=== PATIENT | male | born 1950 | race Two or more races ===

== ENCOUNTER 2025-05-30 12:09 | Inpatient (IN) | payer OTHER, MEDICAID ==
[~2025-05-30] VITALS: Ht 165.1 cm; Wt 72.8 kg
[2025-05-30 01:00] VITALS: BP 152/77; PULSE 70; RESP 18; TEMP 98.2; O2SAT 95
[2025-05-30 05:00] VITALS: BP 122/63; PULSE 65; RESP 18; TEMP 98.6; O2SAT 93
[2025-05-30] MEDS: ACETAMINOPHEN 325 MG TAB PO ONE (13:15)
--- NOTE | 2025-05-30 13:31 | ED.PDOC ---
HPI (NEURO) HPI Comments This is a 75 year old male presenting to the ED with chief complaint of headache. Patient reports that he has been experiencing a right sided headache with associated radiation to the right eye and right side of his face for the past 3 days. Patient denies any numbness, weakness, tingling, dizziness, SOB, or chest pain. Chief Complaint: Headache Time Seen by MD: 13:28 Reviewed Notes: Nurses Notes, Medications, Allergies Information Source: Patient Mode of Arrival: Ambulatory Severity: Moderate Headache Severity: Moderate Timing: Days Duration: Since onset Prehospital treatment: None Headache Quality: Aching Headache Location: Generalized Onset: At rest Circumstances: Spontaneous History of: None Modifying factors: Nothing Associated Signs and Symptoms: Headache Past Medical History PAST MEDICAL HISTORY: Cancer, DM, High Lipids, HTN Past Medical History (Other): Cardiomegaly Surgical History: Denies all surgeries Family History Family History: Reviewed,noncontributory to illness Social History Smoker: Non-Smoker Alcohol: Denies ETOH Use Drugs: Denies Drug Use Lives In: Home Constitutional: denies: chills, diaphoresis, fatigue, fever, malaise, sweats, weakness, others EENTM: reports: eye pain; denies: blurred vision, double vision, ear bleeding, ear discharge, ear drainage, ear pain, ear ringing, eye redness, hearing loss, mouth pain, mouth swelling, nasal discharge, nose bleeding, nose congestion, nose pain, photophobia, tearing, throat pain, throat swelling, voice changes, others Respiratory: denies: cough, hemoptysis, orthopnea, SOB at rest, shortness of breath, SOB with excertion, stridor, wheezing, others Cardiovascular: denies: chest pain, dizzy spells, diaphoresis, Dyspnea on exertion, edema, irregular heart beat, left arm pain, lightheadedness, palpitations, PND, syncope, others Gastrointestinal: denies: abdomen distended, abdominal pain, blood streaked bowels, constipated, diarrhea, dysphagia, difficulty swallowing, hematemesis, melena, nausea, poor appetite, poor fluid intake, rectal bleeding, rectal pain, vomiting, others Genitourinary: denies: burning, dysuria, flank pain, frequency, hematuria, incontinence, penile discharge, penile sore, pain, testicle pain, testicle swelling, urgency, others Neurological: reports: headache; denies: dizziness, fainting, left sided numbness, left sided weakness, numbness, paresthesia, pre-existing deficit, right sided numbness, right sided weakness, seizure, speech problems, tingling, tremors, weakness, others Musculoskeletal: denies: back pain, gout, joint pain, joint swelling, muscle pain, muscle stiffness, neck pain, others Integumetry: denies: bruises, change in color, change in hair/nails, dryness, laceration, lesions, lumps, rash, wounds, others Allergic/Immunocompromised: denies: Difficulty Healing, Frequent Infections, Hi ves, Itching, others Hematologic/Lymphatic: denies: anemia, blood clots, easy bleeding, easy bruising, swollen glands, others Endocrine: denies: excessive hunger, excessive sweating, excessive thirst, excessive urination, flushing, intolerance to cold, intolerance to heat, unexplained weight gain, unexplained weight loss, others Psychiatric: denies: anxiety, bipolar disorder, depression, hopeless, panic disorder, schizophrenia, sleepless, suicidal, others All Other Systems: Reviewed and Negative Physical Exam General Appearance: No Apparent Distress, Normal HEENT: Normal ENT Inspection, Pharynx Normal, TMs Normal Neck: Full Range of Motion, Non-Tender, Normal, Normal Inspection Respiratory: Chest Non-Tender, Lungs Clear, No Accessory Muscle Use, No Respiratory Distress, Normal Breath Sounds Cardiovascular: No Edema, No JVD, No Murmur, No Gallop, Normal Peripheral Pulses, Regular Rate/Rhythm Breast Exam: Deferred Gastrointestinal: No Organomegaly, Non Tender, No Pulsatile Mass, Normal Bowel Sounds, Soft Genitalia: Deferred Pelvic: Deferred Rectal: Deferred Extremities: No calf tenderness, Normal capillary refill, Normal inspection, Normal range of motion, Non-tender, No pedal edema Musculoskeletal : Apperance: Normal Neurologic: Alert, dairy technician II-XII nml as Tested, No Motor Deficits, Normal Affect, Normal Mood, No Sensory Deficits Cerebellar Function: Normal Reflexes: Normal Skin: Dry, Normal Color, Warm Lymphatic: No Adenopathy Was a procedure done? Was a procedure done?: No Differential Diagnosis (SZ) Seizure: N/A X-Ray, Labs, Meds, VS Vital Signs Date Time Temp Pulse Resp B/P (MAP) Pulse Ox O2 Delivery O2 Flow Rate FiO2 05/30/25 14:01 76 93 Room Air 05/30/25 14:01 98.7 76 20 155/71 (99) 93 98.7 05/30/25 13:15 98.4 05/30/25 12:10 98.4 73 18 165/71 97 98.4 Lab Test 05/30/25 14:15 05/30/25 13:41 05/30/25 13:22 Range/Units Troponin I High Sensitivity 8 7 </=54 ng/L Urine Color Yellow Yellow Urine Clarity Clear Clear Urine pH 5.5 5.0-9.0 Urine Specific [place] 1.029 1.001-1.035 Urine Protein 1+ H Negative Urine Ketones Trace Negative Urine Blood Negative Negative /uL Urine Nitrite Negative Negative Urine Bilirubin Negative Negative Urine Urobilinogen Normal Negative mg/dL Urine Leukocyte Esterase Negative Negative /uL Urine RBC 1 0 - 3 /hpf Urine Microscopic WBC 1 0-3 /HPF Urine Squamous Epithelial Cells None seen <5 /hpf Urine Bacteria None seen None Seen /hpf Urine Mucus Few None Seen Urine Glucose Normal Normal mg/dL White Blood Count 10.7 4.4-10.8 10^3/uL Red Blood Count 5.19 4.5-5.90 10^6/uL Hemoglobin 15.2 13.5-17.5 g/dL Hematocrit 44.0 41.0-53.0 % Mean Corpuscular Volume 84.7 80.0-100.0 fL Mean Corpuscular Hemoglobin 29.3 28.0-32.0 pg Mean Corpuscular Hemoglobin Concent 34.6 32.0-36.0 g/dL Red Cell Distribution Width 14.2 11.8-14.3 % Platelet Count 189 140-450 10^3/uL Mean Platelet Volume 8.7 6.9-10.8 fL Neutrophils (%) (Auto) 74.7 37.0-80.0 % Lymphocytes (%) (Auto) 14.5 10.0-50.0 % Monocytes (%) (Auto) 9.5 0.0-12.0 % Eosinophils (%) (Auto) 0.6 0.0-7.0 % Basophils (%) (Auto) 0.7 0.0-2.0 % Neutrophils # (Auto) 8.0 1.6-8.6 10 ^3/uL Lymphocytes # (Auto) 1.5 0.4-5.4 10 ^3/uL Monocytes # (Auto) 1.0 0-1.3 10 ^3/uL Eosinophils # (Auto) 0.1 0-0.8 10 ^3/uL Basophils # (Auto) 0.1 0-0.2 10 ^3/uL Nucleated Red Blood Cells 0.1 % Sodium Level 142 136-145 mmol/L Potassium Level 4.4 3.5-5.1 mmol/L Chloride Level 104 98-107 mmol/L Carbon Dioxide Level 27 20-31 mmol/L Anion Gap 11 5-15 Blood Urea Nitrogen 11 9-23 mg/dL Creatinine 1.20 0.700-1.30 mg/dL Glomerular Filtration Rate Calc 62 >90 mL/min BUN/Creatinine Ratio 9.2 L 10.0-20.0 Serum Glucose 134 H 74-106 mg/dL Calcium Level 10.1 8.7-10.4 mg/dL Current Medications Medications (Trade) Dose Ordered Sig/Libby Route Start Time Stop Time Status Last Admin Sodium Chloride 1,000 ml @ 1,000 mls/hr Q1H ONCE IV 05/30/25 13:15 05/30/25 14:14 DC 05/30/25 14:36 Acetaminophen (Tylenol Tablet) 650 mg ONCE ONCE PO 05/30/25 13:15 05/30/25 13:17 DC 05/30/25 13:15 Metoclopramide HCl (Reglan Injection) 10 mg ONCE ONCE IV 05/30/25 13:15 05/30/25 13:17 DC 05/30/25 14:35 [place] [id number] Ph: [phone] DIAGNOSTIC IMAGING Diagnostic Imaging Report : [id number] Signed PATIENT: JEWELL ORDONEZCCT: [id number] UNIT: [id number] : 1950 LOC: ER ROOM / BED: / AGE / SEX: 75 / M ADM STATUS: REG ER SERVICE 1315 ORDERING PHYSICIAN: BILL CASEY MD PROCEDURE(s): HWOCT - HEAD WITHOUT CONTRAST REASON: dizziness ORDER NUMBER(s): [id number], ACCESSION NUMBER(s): [id number] EXAM: CT HEAD WITHOUT CONTRAST INDICATION: dizziness EXAM DATE: 05/30/2025 01:24 PM COMPARISON: None TECHNIQUE: CT of the head without intravenous contrast. Radiation Dose Information: CTDI volume is 51.67 mGy. Dose-length product is 725.1 mGy*cm FINDINGS: There is no evidence of acute intracranial hemorrhage, extra-axial collection, mass effect, midline shift, herniation or hydrocephalus. The ventricles, sulci and cisterns are age appropriate. The klein-white differentiation is intact. The visualized paranasal sinuses and mastoid air cells are clear. The surrounding soft tissues and osseous structures are unremarkable. IMPRESSION: 1. No evidence of acute intracranial hemorrhage, mass effect or hydrocephalus. END IMPRESSION: ATED BY: RAULITO AVINA MD DICTATED DATE/TIME: 05/30/251345 SIGNED BY: RAULITO AVINA MD SIGNED DATE/TIME: 05/30/251345 CC: [place] [id number] Ph: [phone] DIAGNOSTIC IMAGING Diagnostic Imaging Report : [id number] Signed PATIENT: JEWELL ORDONEZCCT: [id number] UNIT: [id number] : 1950 LOC: ER ROOM / BED: / AGE / SEX: 75 / M ADM STATUS: REG ER SERVICE 14 ORDERING PHYSICIAN: BILL CASEY MD PROCEDURE(s): CXRP - CHEST PORTABLE REASON: headache and dizziness ORDER NUMBER(s): [id number], ACCESSION NUMBER(s): [id number] EXAM: XY CHEST PORTABLE HISTORY: headache and dizziness TECHNIQUE: 1 view of the chest COMPARISON: None FINDINGS/IMPRESSION: LUNGS: Possible infiltrate in the left lung base versus crowding of bronchovascular markings MEDIASTINUM: Unremarkable. BONES: No acute osseous abnormality. OTHER: None. ATED BY: SEAMUS GOMEZ MD DICTATED DATE/TIME: 05/30/251347 SIGNED BY: SEAMUS GOMEZ MD SIGNED DATE/TIME: 05/30/251347 CC: Images Reviewed?: Images reviewed and evaluated by me Time of 1ST Reevaluation: 14:26 Reevaluation 1ST: Unchanged Patient Education/Counseling: Diagnosis, Treatment Family Education/Counseling: Diagnosis, Treatment Departure 1 Departure Time of Disposition: 16:26 (Patient for hands with numbness and tingling in the hands concerning for possible TIA versus complex migraine versus cluster headache. We will admit patient for further workup and expert consultation) Impression: Primary Impression: Suspected transient ischemic attack Additional Impressions: Migraine Left facial numbness Arm numbness Disposition: ADMITTED INPATIENT Admit to: Med Surg Condition: Guarded Critical Care Note Critical Care Time?: No Stability Stability form required: No Heart Score Heart Score: Heart Score Response (Comments) Value History N/A 0 EKG N/A 0 Age N/A 0 Risk Factors N/A 0 Troponin N/A 0 Total 0 I personally scribed for BILL CASEY MD ([email or web address]) on 05/30/25 at 13:31. Electronically submitted by Edu Gonzales ([email or web address]). I personally scribed for BILL CASEY MD ([email or web address]) on 05/30/25 at 14:04. Electronically submitted by Edu Gonzales ([email or web address]). BILL CASEY MD May 30, 2025 13:31
[2025-05-30 13:38] LABS: Hematocrit 44.0 % (41.0-53.0); Hemoglobin 15.2 g/dL (13.5-17.5); Mean Corpuscular Hemoglobin 29.3 pg (28.0-32.0); Mean Corpuscular Volume 84.7 fL (80.0-100.0); Nucleated Red Blood Cells % 0.1 %
[2025-05-30 13:41] LABS: Chloride 104 mmol/L (98-107); Potassium 4.4 mmol/L (3.5-5.1); Sodium 142 mmol/L (136-145)
[2025-05-30 13:42] LABS: Anion Gap 11 (5-15); Carbon Dioxide 27 mmol/L (20-31)
[2025-05-30 13:43] LABS: Calcium 10.1 mg/dL (8.7-10.4)
[2025-05-30 13:48] LABS: BUN/Creatinine Ratio 9.2 (10.0-20.0); Blood Urea Nitrogen 11 mg/dL (9-23)
--- NOTE | 2025-05-30 13:48 | DVH ---
EXAM: CT HEAD WITHOUT CONTRAST INDICATION: dizziness EXAM DATE: 05/30/2025 01:24 PM COMPARISON: None TECHNIQUE: CT of the head without intravenous contrast. Radiation Dose Information: CTDI volume is 51.67 mGy. Dose-length product is 725.1 mGy*cm FINDINGS: There is no evidence of acute intracranial hemorrhage, extra-axial collection, mass effect, midline shift, herniation or hydrocephalus. The ventricles, sulci and cisterns are age appropriate. The klein-white differentiation is intact. The visualized paranasal sinuses and mastoid air cells are clear. The surrounding soft tissues and osseous structures are unremarkable. IMPRESSION: 1. No evidence of acute intracranial hemorrhage, mass effect or hydrocephalus. END IMPRESSION:
--- NOTE | 2025-05-30 13:51 | DVH ---
EXAM: XY CHEST PORTABLE HISTORY: headache and dizziness TECHNIQUE: 1 view of the chest COMPARISON: None FINDINGS/IMPRESSION: LUNGS: Possible infiltrate in the left lung base versus crowding of bronchovascular markings MEDIASTINUM: Unremarkable. BONES: No acute osseous abnormality. OTHER: None.
[2025-05-30 13:55] LABS: Glucose 134 mg/dL (74-106)
[2025-05-30 14:11] LABS: Urine Protein, UAD 1+ (Negative)
[2025-05-30] MEDS: METOCLOPRAMIDE HCL 5MG/ml INJ 2ml VIAL IV ONE (14:35)
[2025-05-30] MEDS: SODIUM CHLORIDE 0.9% 1,000 ML IV ONE (14:36)
[2025-05-30] MEDS ORDERED: DEXTROSE (50%) 50ML SYRG IV PRN (21:45)
[2025-05-30] MEDS ORDERED: ACETAMINOPHEN 325 MG TAB PO PRN (21:45)
[2025-05-30] MEDS: ACCU-CHEK COMFORT CURVE STRIP VI SCH (22:12)
[2025-05-30] MEDS: LOSARTAN POTASSIUM 50 MG TAB PO SCH (22:16)
[2025-05-30] MEDS: InsuLIN REG 1unit/0.01ml Soln (100units/ml) SC SCH (22:17)
[2025-05-30 22:44] VITALS: BP 139/69; PULSE 67; RESP 18; TEMP 97.7; O2SAT 94
[2025-05-31] MEDS ORDERED: ROSU40TA47 PO (00:19)
[2025-05-31] MEDS ORDERED: METF-372 PO (00:19)
[2025-05-31] MEDS ORDERED: GLUC-149 XX (00:19)
[2025-05-31] MEDS ORDERED: [UNRECOGNIZED DRUG - CODE] (00:19)
[2025-05-31] MEDS ORDERED: SITA100T7 PO (00:19)
[2025-05-31] MEDS ORDERED: MELO15TA29 PO (00:19)
[2025-05-31] MEDS ORDERED: LOSA-535 PO (00:19)
[2025-05-31] MEDS ORDERED: AMLO1TAB22 PO (00:19)
[2025-05-31] MEDS: KETOROLAC TROMETH 30 MG/ML 1ML VIAL IV PRN (00:24)
--- NOTE | 2025-05-31 01:52 | DVHHP2 ---
History of Present Illness History of Present Illness 75-year-old male with PMHx of prostate cancer in remission status post surgical resection, type 2 diabetes mellitus, hypertension, and hyperlipidemia, who presented with a 3-day history of right-sided headache. Pain started in the right periorbital region and radiated posteriorly toward the occipital area. Headache partially improved upon arrival to the ED. No prior history of migraine or chronic headache disorders. Blood pressure on presentation was elevated to 165 systolic, later improved. He denies fever, neck stiffness, jaw claudication, scalp tenderness, visual changes, focal weakness, sensory deficits, or speech difficulties. PMHx Prostate cancer in remission status post surgery, type 2 diabetes mellitus, hypertension, hyperlipidemia PSHx Prostate surgery for malignancy Medications Amlodipine, losartan, metformin, sitagliptin (Januvia), rosuvastatin Allergies No known drug allergies reported Social History No tobacco, alcohol, or illicit drug use reported ROS Negative except as per HPI Labs / Imaging CBC within normal limits CMP with mild hyperglycemia Urinalysis unremarkable CT head without contrast: no acute intracranial abnormality, no evidence of hemorrhage or ischemic stroke Review of Systems Allergies: Coded Allergies: NO KNOWN ALLERGIES (Unverified , 05/30/25) Medications Current Medications Medications Dose Ordered Sig/Libby Route Start Time Stop Time Status Last Admin Dose Admin Diagnostic Test (Pha) 1 strip ACHS 05/30/25 22:00 05/30/25 22:12 1 STRIP Insulin Human Regular ACHS SC 05/30/25 22:00 05/30/25 22:17 2 UNITS Dextrose 50 ml UD PRN IV 05/30/25 21:45 Losartan Potassium 100 mg DAILY PO 05/30/25 21:45 05/30/25 22:16 100 MG Amlodipine Besylate 5 mg DAILY PO 05/31/25 10:00 Acetaminophen 650 mg Q4HP PRN PO 05/30/25 21:45 Ketorolac Tromethamine 15 mg Q6HPRN PRN IV 05/30/25 21:45 06/04/25 21:44 05/31/25 00:24 15 MG Exam Vital Signs Vital Signs Date Time Temp Pulse Resp B/P (MAP) Pulse Ox O2 Delivery O2 Flow Rate FiO2 05/30/25 22:46 Room Air* 0 21 05/30/25 22:16 149/72 05/30/25 22:14 97.9 73 20 94 97.9 Exam Vital signs stable after initial hypertension General: No acute distress HEENT: Normocephalic, atraumatic, no scalp tenderness Neuro: Alert and oriented, cranial nerves IIXII intact, normal visual quiñonez by confrontation, full extraocular movements, normal strength and sensation in all extremities, normal coordination and gait Cardiac: Regular rate and rhythm Pulmonary: Clear to auscultation bilaterally Abdomen: Soft, non-tender Extremities: No edema Labs/Xrays Labs Test 05/30/25 22:12 05/30/25 14:15 05/30/25 13:41 05/30/25 13:22 Range/Units POC Glucose 150 H 70-106 mg/dl Troponin I High Sensitivity 8 </=54 ng/L Urine Color Yellow Yellow Urine Clarity Clear Clear Urine pH 5.5 5.0-9.0 Urine Specific [place] 1.029 1.001-1.035 Urine Protein 1+ H Negative Urine Ketones Trace Negative Urine Blood Negative Negative /uL Urine Nitrite Negative Negative Urine Bilirubin Negative Negative Urine Urobilinogen Normal Negative mg/dL Urine Leukocyte Esterase Negative Negative /uL Urine RBC 1 0 - 3 /hpf Urine Microscopic WBC 1 0-3 /HPF Urine Squamous Epithelial Cells None seen <5 /hpf Urine Bacteria None seen None Seen /hpf Urine Mucus Few None Seen Urine Glucose Normal Normal mg/dL White Blood Count 10.7 4.4-10.8 10^3/uL Red Blood Count 5.19 4.5-5.90 10^6/uL Hemoglobin 15.2 13.5-17.5 g/dL Hematocrit 44.0 41.0-53.0 % Mean Corpuscular Volume 84.7 80.0-100.0 fL Mean Corpuscular Hemoglobin 29.3 28.0-32.0 pg Mean Corpuscular Hemoglobin Concent 34.6 32.0-36.0 g/dL Red Cell Distribution Width 14.2 11.8-14.3 % Platelet Count 189 140-450 10^3/uL Mean Platelet Volume 8.7 6.9-10.8 fL Neutrophils (%) (Auto) 74.7 37.0-80.0 % Lymphocytes (%) (Auto) 14.5 10.0-50.0 % Monocytes (%) (Auto) 9.5 0.0-12.0 % Eosinophils (%) (Auto) 0.6 0.0-7.0 % Basophils (%) (Auto) 0.7 0.0-2.0 % Neutrophils # (Auto) 8.0 1.6-8.6 10 ^3/uL Lymphocytes # (Auto) 1.5 0.4-5.4 10 ^3/uL Monocytes # (Auto) 1.0 0-1.3 10 ^3/uL Eosinophils # (Auto) 0.1 0-0.8 10 ^3/uL Basophils # (Auto) 0.1 0-0.2 10 ^3/uL Nucleated Red Blood Cells 0.1 % Sodium Level 142 136-145 mmol/L Potassium Level 4.4 3.5-5.1 mmol/L Chloride Level 104 98-107 mmol/L Carbon Dioxide Level 27 20-31 mmol/L Anion Gap 11 5-15 Blood Urea Nitrogen 11 9-23 mg/dL Creatinine 1.20 0.700-1.30 mg/dL Glomerular Filtration Rate Calc 62 >90 mL/min BUN/Creatinine Ratio 9.2 L 10.0-20.0 Serum Glucose 134 H 74-106 mg/dL Calcium Level 10.1 8.7-10.4 mg/dL SEPSIS Sepsis Screen Date sepsis recognized/suspect: May 30, 2025 Time Sepsis recognized/suspect: 2213 Recent Procedure: No On Antibiotic Therapy: No Respiratory Rate >20: No Heart Rate >90: No Temp<36 C (96.8 F) or >38.3 C: No SBP <90 or MAP <65 mmHG: No New Acute Mental Status Change: No Is the patient on CPAP, BIPAP,: No Physician Orders Admit (05/30/25 21:20) Oxygen By Nasal Cannula (05/30/25 21:20) Stat Ekg For Chest Pain (05/30/25 21:20) Notify Md Of Changes From Base (05/30/25 21:20) Poultry Eviscerator For 24 Hours (05/30/25 21:20) Emergency Dysrhythmia Protocol (05/30/25 21:20) Rhythm Strips Once Every Shift (05/30/25 21:20) Cardiac Diet-2gna,Lofat,Lochol (05/31/25 Breakfast) Glucose Blood (Accu-Chek Comfort Curve T (05/30/25 22:00) Losartan Tablet (Cozaar Tablet) (05/30/25 21:45) Amlodipine Tablet (Norvasc Tablet) (05/31/25 10:00) Acetaminophen Tablet (Tylenol Tablet) (05/30/25 21:45) Ketorolac Injection (Toradol Injection) (05/30/25 21:45) Insulin R (Human) (Insulin R) (05/30/25 22:00) Dextrose 50% Syringe (05/30/25 21:45) Vital Signs Date Time Temp Pulse Resp B/P (MAP) Pulse Ox O2 Delivery O2 Flow Rate FiO2 05/30/25 22:46 Room Air* 0 21 05/30/25 22:16 149/72 05/30/25 22:14 97.9 73 20 149/72 (97) 94 97.9 05/30/25 20:39 97.8 69 18 158/74 (102) 93 97.8 Medications Medications Dose Ordered Sig/Libby Route Start Time Stop Time Status Last Admin Dose Admin Diagnostic Test (Pha) 1 strip ACHS 05/30/25 22:00 05/30/25 22:12 1 STRIP Insulin Human Regular ACHS SC 05/30/25 22:00 05/30/25 22:17 2 UNITS Ketorolac Tromethamine 15 mg Q6HPRN PRN IV 05/30/25 21:45 06/04/25 21:44 05/31/25 00:24 15 MG Losartan Potassium 100 mg DAILY PO 05/30/25 21:45 05/30/25 22:16 100 MG Assessment/Plan Assessment/Plan #Intractable migraine without aura Admitted to medical service for pain control and monitoring. CT head negative, normal neurologic exam, no red flag features to suggest secondary headache. Continue acetaminophen and ketorolac PRN analgesia as needed. Monitor neurologic status. If headache persists, consider migraine-directed therapy escalation. #Hypertension Resume home amlodipine and losartan. Monitor blood pressure during hospitalization. Elevated BP likely reactive to pain. #Type 2 diabetes mellitus Hold oral agents while inpatient. Initiate insulin sliding scale. Monitor glucose levels. #Hyperlipidemia Continue home statin. #History of prostate cancer, status post surgery, in remission Case discussed with Dr Crandall Full code Plan discussed with: Patient, Other (rn) My Orders Orders - ROBERTA PORTILLO RESIDENT Procedure Category Date Status Time Admit ADMIT 05/30/25 Transmitted 21:20 Oxygen By Nasal RT 05/30/25 Transmitted Cannula 21:20 Stat Ekg For Chest [facility] 05/30/25 In Process Pain 21:20 Notify Of Changes [facility] 05/30/25 In Process From Base 21:20 Poultry Eviscerator For [facility] 05/30/25 In Process 24 Hours 21:20 Emergency Dysrhythmia [facility] 05/30/25 In Process Protocol 21:20 Rhythm Strips Once [facility] 05/30/25 In Process Every Shift 21:20 Cardiac DIET 05/31/25 Transmitted Diet-2gna,Lofat,Lochol Breakfast Glucose Blood PHA 05/30/25 In Process (Accu-Chek Comfort 22:00 Losartan Tablet PHA 05/30/25 In Process (Cozaar Tablet) 21:45 Amlodipine Tablet PHA 05/31/25 In Process (Norvasc Tablet) 10:00 Acetaminophen Tablet PHA 05/30/25 In Process (Tylenol Tablet) 21:45 Ketorolac Injection PHA 05/30/25 In Process (Toradol Injection) 21:45 Insulin R (Human) PHA 05/30/25 In Process (Insulin R) 22:00 Dextrose 50% Syringe PHA 05/30/25 In Process 21:45 Date of Service: May 30, 2025 Billing Provider: JAISON CRANDALL MD Common Visit Codes: [id number] INP/OBS CARE (HIGH) Secondary Visit Codes: [id number] CARE PLAN 30 MINUTES ROBERTA PORTILLO RESIDENT May 31, 2025 01:52
[2025-05-31 05:59] LABS: Hematocrit 39.1 % (41.0-53.0); Hemoglobin 13.2 g/dL (13.5-17.5); Mean Corpuscular Hemoglobin 28.8 pg (28.0-32.0); Mean Corpuscular Volume 85.4 fL (80.0-100.0); Nucleated Red Blood Cells % 0.1 %
[2025-05-31 06:17] LABS: Alanine Aminotransferase 12 U/L (7-40); Alkaline Phosphatase 71 U/L (46-116); Anion Gap 9 (5-15); BUN/Creatinine Ratio 10.2 (10.0-20.0); Blood Urea Nitrogen 13 mg/dL (9-23); Calcium 9.3 mg/dL (8.7-10.4); Carbon Dioxide 26 mmol/L (20-31); Chloride 106 mmol/L (98-107); Potassium 4.0 mmol/L (3.5-5.1); Sodium 141 mmol/L (136-145); Total Protein 6.6 g/dL (5.7-8.2)
[2025-05-31 06:18] LABS: Albumin 4.1 g/dL (3.2-4.8); Bilirubin, Total 0.6 mg/dL (0.2-1.0); Glucose 120 mg/dL (74-106)
[2025-05-31 09:00] VITALS: BP 142/78; PULSE 69; RESP 17; TEMP 98.2; O2SAT 95
[2025-05-31 13:00] VITALS: BP 116/70; PULSE 59; RESP 16; TEMP 97.8; O2SAT 95
--- NOTE | 2025-05-31 13:19 | DVHPN2 ---
Reviewed: Care Plan, H&P, Labs, Medications, Previous Orders, Radiology Changes from previous H/P or p: No Changes Objective Vitals Vital Signs Date Time Temp Pulse Resp B/P (MAP) Pulse Ox O2 Delivery O2 Flow Rate FiO2 05/31/25 09:00 98.2 69 17 142/78 (99) 95 98.2 05/31/25 08:00 Room Air* 0 21 Intake/Output Intake and Output 05/31/25 07:00 Intake Total 100 ml Balance 100 ml Intake Oral 100 ml Medications Current Medications Medications Dose Ordered Sig/Libby Route Start Time Stop Time Status Last Admin Dose Admin Diagnostic Test (Pha) 1 strip ACHS 05/30/25 22:00 05/31/25 10:35 1 STRIP Insulin Human Regular ACHS SC 05/30/25 22:00 05/31/25 10:35 6 UNITS Dextrose 50 ml UD PRN IV 05/30/25 21:45 Losartan Potassium 100 mg DAILY PO 05/30/25 21:45 05/31/25 08:11 100 MG Amlodipine Besylate 5 mg DAILY PO 05/31/25 10:00 05/31/25 08:10 5 MG Acetaminophen 650 mg Q4HP PRN PO 05/30/25 21:45 Ketorolac Tromethamine 15 mg Q6HPRN PRN IV 05/30/25 21:45 06/04/25 21:44 05/31/25 08:11 15 MG Laboratory Results Laboratory Tests 05/31/25 05:28 Chemistry Test 05/30/25 13:22 05/31/25 05:28 Calcium Level 10.1 mg/dL (8.7-10.4) 9.3 mg/dL (8.7-10.4) Albumin 4.1 g/dL (3.2-4.8) Total Protein 6.6 g/dL (5.7-8.2) LFT Test 05/31/25 05:28 Alanine Aminotransferase (ALT) 12 U/L (7-40) Alkaline Phosphatase 71 U/L (46-116) Aspartate Amino Transferase (AST) 18 U/L (13-40) Total Bilirubin 0.6 mg/dL (0.2-1.0) Urinalysis Test 05/30/25 13:41 Urine Color Yellow (Yellow) Urine Clarity Clear (Clear) Urine pH 5.5 (5.0-9.0) Urine Specific [place] 1.029 (1.001-1.035) Urine Protein 1+ (Negative) H Urine Ketones Trace (Negative) Urine Blood Negative /uL (Negative) Urine Nitrite Negative (Negative) Urine Bilirubin Negative (Negative) Urine Urobilinogen Normal mg/dL (Negative) Urine Leukocyte Esterase Negative /uL (Negative) Urine RBC 1 /hpf (0 - 3) Urine Microscopic WBC 1 /HPF (0-3) Urine Squamous Epithelial Cells None seen /hpf (<5) Urine Bacteria None seen /hpf (None Seen) Urine Mucus Few (None Seen) Urine Glucose Normal mg/dL (Normal) Labs and/or images reviewed: Labs reviewed by me, Image(s) reviewed by me Assessment/Plan Assessment/Plan Intractable migraine without aura: Toradol, CT head negative Hypertension Type 2 diabetes Hyperlipidemia History of prostate cancer status post surgery in remission Time spent 50 minutes Plan discussed with: Patient Date of Service: May 31, 2025 Billing Provider: ELENA SYED MD Common Visit Codes: [id number] INP/OBS CARE(HIGH) ELENA SYED MD May 31, 2025 13:19
[2025-05-31 17:00] VITALS: BP 129/73; PULSE 64; RESP 16; TEMP 98.2; O2SAT 95
[2025-05-31 21:21] VITALS: BP 125/78; PULSE 60; RESP 17; TEMP 97.9; O2SAT 95
[2025-06-01] VITALS (7 sets, daily range): BP systolic 127–141; BP diastolic 74–80; PULSE 50–62; RESP 14–18; TEMP 97.1–98.3; O2SAT 94–98
--- NOTE | 2025-06-01 11:06 | DVHPN2 ---
Reviewed: Care Plan, H&P, Labs, Medications, Previous Orders, Radiology Changes from previous H/P or p: No Changes Objective Vitals Vital Signs Date Time Temp Pulse Resp B/P (MAP) Pulse Ox O2 Delivery O2 Flow Rate FiO2 06/01/25 09:21 139/76 06/01/25 09:00 97.1 50 16 94 97.1 05/31/25 20:00 Room Air* 0 21 Intake/Output Intake and Output 06/01/25 07:00 Intake Total 1425 ml Balance 1425 ml Intake Oral 1425 ml # Voids 6 # Bowel Movements 2 Medications Current Medications Medications Dose Ordered Sig/Libby Route Start Time Stop Time Status Last Admin Dose Admin Diagnostic Test (Pha) 1 strip ACHS 05/30/25 22:00 06/01/25 06:23 1 STRIP Insulin Human Regular ACHS SC 05/30/25 22:00 05/31/25 21:19 3 UNITS Dextrose 50 ml UD PRN IV 05/30/25 21:45 Losartan Potassium 100 mg DAILY PO 05/30/25 21:45 06/01/25 09:21 100 MG Amlodipine Besylate 5 mg DAILY PO 05/31/25 10:00 06/01/25 09:21 5 MG Acetaminophen 650 mg Q4HP PRN PO 05/30/25 21:45 Ketorolac Tromethamine 15 mg Q6HPRN PRN IV 05/30/25 21:45 06/04/25 21:44 06/01/25 04:44 15 MG Laboratory Results Laboratory Tests 05/31/25 05:28 Urinalysis Test 05/30/25 13:41 Urine Color Yellow (Yellow) Urine Clarity Clear (Clear) Urine pH 5.5 (5.0-9.0) Urine Specific [place] 1.029 (1.001-1.035) Urine Protein 1+ (Negative) H Urine Ketones Trace (Negative) Urine Blood Negative /uL (Negative) Urine Nitrite Negative (Negative) Urine Bilirubin Negative (Negative) Urine Urobilinogen Normal mg/dL (Negative) Urine Leukocyte Esterase Negative /uL (Negative) Urine RBC 1 /hpf (0 - 3) Urine Microscopic WBC 1 /HPF (0-3) Urine Squamous Epithelial Cells None seen /hpf (<5) Urine Bacteria None seen /hpf (None Seen) Urine Mucus Few (None Seen) Urine Glucose Normal mg/dL (Normal) Labs and/or images reviewed: Labs reviewed by me, Image(s) reviewed by me Assessment/Plan Assessment/Plan Intractable migraine without aura: Toradol, CT head negative Hypertension Type 2 diabetes Hyperlipidemia History of prostate cancer status post surgery in remission Still complaining of headache on the right side; will check ESR to rule out any temporal arteritis Time spent 50 minutes Plan discussed with: Patient Date of Service: Jun 01, 2025 Billing Provider: ELENA SYED MD Common Visit Codes: [id number] INP/OBS CARE(HIGH) ELENA SYED MD Jun 01, 2025 11:06
[2025-06-02 00:53] VITALS: BP 117/69; PULSE 53; RESP 16; TEMP 97.8; O2SAT 95
[2025-06-02 04:58] VITALS: BP 131/78; PULSE 62; RESP 16; TEMP 98.3; O2SAT 97
[2025-06-02 08:00] VITALS: PULSE 62; RESP 18
[2025-06-02 08:59] VITALS: BP 140/76; PULSE 56; RESP 18; TEMP 97.4; O2SAT 93
[2025-06-02] MEDS ORDERED: AMLO1TAB23 PO (10:46)
[2025-06-02 11:13] VITALS: BP 140/76
--- NOTE | 2025-06-02 12:16 | DVH ---
PROCEDURE: MRI BRAIN HEAD WO CONTRAST INDICATION: headache COMPARISON: None TECHNIQUE: Multiplanar multisequence images of the brain are obtained. FINDINGS: There is no abnormal diffusion restriction. Mild periventricular and subcortical white matter T2/FLAIR hyperintense changes. There is no intracranial hemorrhage. No extra-axial fluid collection, mass effect or midline shift. The ventricles are midline and normal in size. The cisterns are patent. Normal intracranial flow voids are preserved. No abnormal susceptibility signal. Tiny left mastoid effusion. Mucosal thickening sphenoid air cells, ethmoids The visualized orbits are unremarkable. IMPRESSION: No acute cerebrovascular ischemia. Mild chronic microvascular ischemic changes. Tiny left mastoid effusion. Paranasal sinus disease.
--- NOTE | 2025-06-02 15:09 | DVHDS2 ---
Discharge Summary Date of Admission May 30, 2025 at 21:20 Date of Discharge: Jun 02, 2025 Labs/Diagnostic Data: Laboratory Results Test 06/02/25 06:11 06/01/25 12:21 05/31/25 05:28 05/30/25 14:15 POC Glucose 111 mg/dl (70-106) Erythrocyte Sedimentation Rate 22 mm/hr (0-20) White Blood Count 7.3 10^3/uL (4.4-10.8) Red Blood Count 4.58 10^6/uL (4.5-5.90) Hemoglobin 13.2 g/dL (13.5-17.5) Hematocrit 39.1 % (41.0-53.0) Mean Corpuscular Volume 85.4 fL (80.0-100.0) Mean Corpuscular Hemoglobin 28.8 pg (28.0-32.0) Mean Corpuscular Hemoglobin Concent 33.7 g/dL (32.0-36.0) Red Cell Distribution Width 14.2 % (11.8-14.3) Platelet Count 144 10^3/uL (140-450) Mean Platelet Volume 8.5 fL (6.9-10.8) Neutrophils (%) (Auto) 66.1 % (37.0-80.0) Lymphocytes (%) (Auto) 20.3 % (10.0-50.0) Monocytes (%) (Auto) 12.1 % (0.0-12.0) Eosinophils (%) (Auto) 0.9 % (0.0-7.0) Basophils (%) (Auto) 0.6 % (0.0-2.0) Neutrophils # (Auto) 4.8 10 ^3/uL (1.6-8.6) Lymphocytes # (Auto) 1.5 10 ^3/uL (0.4-5.4) Monocytes # (Auto) 0.9 10 ^3/uL (0-1.3) Eosinophils # (Auto) 0.1 10 ^3/uL (0-0.8) Basophils # (Auto) 0 10 ^3/uL (0-0.2) Nucleated Red Blood Cells 0.1 % Sodium Level 141 mmol/L (136-145) Potassium Level 4.0 mmol/L (3.5-5.1) Chloride Level 106 mmol/L (98-107) Carbon Dioxide Level 26 mmol/L (20-31) Anion Gap 9 (5-15) Blood Urea Nitrogen 13 mg/dL (9-23) Creatinine 1.28 mg/dL (0.700-1.30) Glomerular Filtration Rate Calc 58 mL/min (>90) BUN/Creatinine Ratio 10.2 (10.0-20.0) Serum Glucose 120 mg/dL (74-106) Calcium Level 9.3 mg/dL (8.7-10.4) Total Bilirubin 0.6 mg/dL (0.2-1.0) Aspartate Amino Transferase (AST) 18 U/L (13-40) Alanine Aminotransferase (ALT) 12 U/L (7-40) Alkaline Phosphatase 71 U/L (46-116) Total Protein 6.6 g/dL (5.7-8.2) Albumin 4.1 g/dL (3.2-4.8) Troponin I High Sensitivity 8 ng/L (</=54) Test 05/30/25 13:41 Urine Color Yellow (Yellow) Urine Clarity Clear (Clear) Urine pH 5.5 (5.0-9.0) Urine Specific [place] 1.029 (1.001-1.035) Urine Protein 1+ (Negative) Urine Ketones Trace (Negative) Urine Blood Negative /uL (Negative) Urine Nitrite Negative (Negative) Urine Bilirubin Negative (Negative) Urine Urobilinogen Normal mg/dL (Negative) Urine Leukocyte Esterase Negative /uL (Negative) Urine RBC 1 /hpf (0 - 3) Urine Microscopic WBC 1 /HPF (0-3) Urine Squamous Epithelial Cells None seen /hpf (<5) Urine Bacteria None seen /hpf (None Seen) Urine Mucus Few (None Seen) Urine Glucose Normal mg/dL (Normal) Other Laboratory Tests 05/31/25 05:28 Brief Hx & Hospital Course: Final diagnoses: Headache due to uncontrolled HTN Uncontrolled HTN DM2 Mixed hyperlipidemia His BP was high He takes amlodipine 5 mg and Losartan [address] head is normal MRI brain is negative for stroke Doing better DC home Increase amlodipine to 10 mg qd Continue Losartan 100 mg qd F/U PCP AMAYA Condition at Discharge: Stable Final Diagnosis/Problems List Headache due to uncontrolled HTN Uncontrolled HTN DM2 Discharge Disposition: Home SNF Discharge Will this Physician continue t: No Discharge Instruct/Medications Diet: Consistent carbohydrate, Cardiac 2g Na,low cholest Activity: No Restrictions, As Tolerated Follow Up/Referral: PCP AMAYA Medications: Increase amlodipine to 10 mg qd Losartan 100 mg qd Resume other home meds Scheduled Amlodipine Besylate (Amlodipine Besylate), 1 TAB PO DAILY Losartan Potassium (Losartan Potassium), 1 TAB PO DAILY, (Reported) Meloxicam (Meloxicam), 1 TAB PO DAILY, (Reported) Rosuvastatin Calcium (Rosuvastatin Calcium), 1 TAB PO DAILY, (Reported) Sitagliptin Phosphate (Januvia), 1 TAB PO DAILY, (Reported) Scheduled PRN Glucose Blood (Freestyle Lite Test Strip), XX for diabetes mellitus, (Reported) Miscellaneous Medications Lotilaner (Xdemvy), (Reported) Metformin Hydrochloride (Metformin Hcl), 1 TAB PO, (Reported) Discontinued Medications Amlodipine Besylate (Amlodipine Besylate), 1 TAB PO DAILY, (Reported) Discharge Statement: "Patient was advised to return to the ER or call 911 if any headaches, dizziness, shortness of breath, chest pain, abdominal pain, bleeding, fevers, or worsening of medical condition. Patient was counseled about treatment plan, medications, possible side effects, patientverbalized understanding. All questions were answered to the best of my ability. This discharge took greater then 30 minutes in planning, reviewing documentation, counseling the patient, and discussing with other team members." ASSESSMENT ASSESSMENT Assessment Headache due to uncontrolled HTN Uncontrolled HTN DM2 Date of Service: Jun 02, 2025 Billing Provider: CASTILLO PACHECO MD Common Visit Codes: NOT BILLABLE CASTILLO PACHECO MD Jun 02, 2025 15:09
== END 2025-06-02 12:05 | disposition home or self-care (01) | DRG 305 ==
LOC: ER 12:09 → OVERFLOW 21:20 → EAST 22:43
PROVIDERS: ADMIT Internal Medicine Geriatric Medicine; ATTEND Internal Medicine Geriatric Medicine
DX: I16.0 Hypertensive urgency (principal); E11.9 Type 2 diabetes mellitus without complications; I10 Essential (primary) hypertension; G43.019 Migraine without aura, intractable, without status migrainosus; E78.2 Mixed hyperlipidemia; Z85.46 Personal history of malignant neoplasm of prostate; Z79.899 Other long term (current) drug therapy
CPT/HCPCS: 36415; 70450; 70551; 71045; 80048; 80053; 81001; 82962; 84484; 85025; 85652; 96361; 96374; G0378; J1815; J1885